=== PATIENT | female | born 1945 | race Caucasian/White ===

== ENCOUNTER 2017-05-14 06:07 | Day surgery (SDC) | END 2017-05-14 10:55 | disposition home or self-care (01) ==

== ENCOUNTER 2018-04-23 05:51 | Day surgery (SDC) | payer OTHER ==
--- NOTE | 2018-04-22 12:20 | PREOPHP ---
DATE OF ADMISSION: 04/23/2018 HISTORY OF PRESENT ILLNESS: This 73-year-old patient is admitted for elective cataract surgery of th e right eye. The patient has had decreased vision over the past year's time involving the right eye. The patient denies prior history of eye disease or injury. PAST MEDICAL HISTORY: The patient has a positive systemic history for insulin-dependent diabetes carrie litus, systemic hypertension, hypothyroidism and having had a gastric bypass in 2018. CURRENT MEDICATIONS: Include: 1. Victoza. 2. Lantus insulin. 3. Losartan. 4. Aspirin (discontinued on 04/16/2018). 5. Levothyroxine. 6. Jardiance. ALLERGIES: THE PATIENT IS ALLERGIC TO: 1. PENICILLIN. 2. LASIX. 3. BUMEX. PHYSICAL EXAMINATION: Visual acuity with correction is finger counting in the right eye and 20/40 in the left eye. Slit lamp examination reveals anterior cortical nuclear sclerotic and posterior subca psular cataract changes, greater in the right eye than the left eye. Applanation tonometry is 20 mmH g in each eye. Examination of the retina in the right eye is obscured by the advanced cataract. The left eye appears within normal limits without evidence of diabetic retinopathy. DIAGNOSIS: Combined form of cataract, right eye. PLAN: Cataract extraction with lens implant, right eye. The risks and alternatives to the surgery h ave been discussed with the patient as well as the hope for improvement of visual acuity leading to a bility to perform activities of daily living. The patient understands this and agrees to proceed wit h surgery. Dictated By: FERNANDO HATCH/YANETH Conf#: [id number] DID#: [id number]
[~2018-04-23] VITALS: Ht 148.6 cm; Wt 117.2 kg
[2018-04-23] VITALS (10 sets, daily range): BP systolic 101–143; BP diastolic 41–62; PULSE 72–89; RESP 15–18; Ht 148.6 cm; Wt 117.2 kg
[~2018-04-23 05:51] MED LIST: ALBU18HF INHALATION; ASPI-817 PO; ATOR20TA38 PO; CARV6.2579 PO; CETI5SOL PO; DILTIAZEM PO; DOCU-159 PO; DULERA; EMPA10TA PO; ETHA25TA2 PO; FER325 PO; HUMULIN SC; HYDR25TA6 PO; LANT3I SC; LEVO200T6 PO; LIRA0.6P SQ; LOSA100T15 PO; POTA20PA23 PO; TIOT18CA IH
[2018-04-23] MEDS ORDERED: TROPICAMIDE 1% 15 ML OPH OPER SCH (06:00)
[2018-04-23] MEDS ORDERED: DICLOFENAC 0.1% 2.5 ML OPH OPER SCH (06:00)
[2018-04-23] MEDS ORDERED: CYCLOPENTOLATE/PHENYLEPH 2 ML OPH OPER SCH (06:00)
[2018-04-23] MEDS ORDERED: SOD CHLORIDE 0.9% 1,000 ML IV SCH (06:00)
[2018-04-23] MEDS ORDERED: MOXIFLOXACIN 0.5% 3 ML OPH OPER SCH (06:00)
[2018-04-23] MEDS ORDERED: TIOT18CA INHALATION (06:48)
--- NOTE | 2018-04-23 06:48 | PREAC ---
Date/Time of Note Date/Time of Note DATE: 04/23/18 TIME: 06:42 Anesthesia Eval and Record Evaluation Time Pre-Procedure Interview DATE: 04/23/18 TIME: 06:42 Age 73 Sex female NPO: 8 hrs Preoperative diagnosis Right Eye cataract Planned procedure Right eye cataract extraction and IOL Past Medical History Past Medical History: Includes Cardio: HTN, Dyslipidemia, CAD, CHF Endo: Diabetes, Hypothyroid Pulm: Smoking Hx, COPD, Sleep Apnea Neuro: Peripheral neuropathy Musculoskeletal: Osteoarthritis Renal: Other Hepatic: Other GI: Morbid obesity Heme: Other Psych: Depression, Anxiety Infection(s): Other Recreational drugs: Other : Other Surgery & Anesthesia Issues Hx of difficult intubation, Aspiration risk Meds Anticoagulation: No Beta Angela within 24 hr: Yes Reason Beta Angela not given: Asthma Reported Medications Liraglutide (Victoza 2-Jamal) 0.6 Mg/0.1 Ml Pen.injctr, 0.6 MG SQ DAILY, SYR 05/14/17 Insulin Glargine* (Lantus*) 100 Unit/Ml Soln, 1 UNIT SC DAILY, #1 VIAL 05/14/17 Potassium Chloride (Potassium Chloride) 20 Meq Packet, 20 MEQ PO BID, PACKET 05/14/17 Carvedilol* (Carvedilol*) 6.25 Mg Tablet, 6.25 MG PO BID, #60 TAB 05/14/17 Empagliflozin (Jardiance) 10 Mg Tablet, 10 MG PO DAILY, TAB 05/14/17 Ferrous Sulfate* (Ferrous Sulfate*) 325 Mg Tabec, 325 MG PO DAILY, TAB 05/14/17 Albuterol Sulfate* (Ventolin HFA*) 18 Gm Hfa.aer.ad, 2 PUFF INHALATION Q6H, #1 INHALER 05/14/17 Docusate Sodium* (Docusate Sodium*) 100 Mg Capsule, 100 MG PO BID, CAP 11/24/14 Aspirin* (Aspirin* EC) 81 Mg Tablet.dr, 81 MG PO DAILY, TAB 11/24/14 Hydrochlorothiazide* (Hydrochlorothiazide*) 25 Mg Tab, 25 MG PO DAILY, TAB 11/24/14 Levothyroxine Sodium* (Levothyroxine Sodium*) 200 Mcg Tablet, 200 MCG PO AC BREAKFAST, TAB 11/24/14 Atorvastatin Calcium* (Atorvastatin Calcium*) 20 Mg Tablet, 20 MG PO HS, TAB 11/24/14 Losartan Potassium* (Losartan Potassium*) 100 Mg Tablet, 100 MG PO DAILY, TAB 11/24/14 Ethacrynic Acid* (Edecrin*) 25 Mg Tablet, 25 MG PO BID, TAB 11/24/14 [Diltiazem] No Conflict Check, 30 MG PO DAILY 11/24/14 Cetirizine Hcl* (Cetirizine Hcl*) 5 Mg/5 Ml Solution, 10 MG PO DAILY, ML 11/24/14 [Dulera] No Conflict Check 11/24/14 [Humulin] No Conflict Check, 30 UNITS SC DAILY 11/24/14 Tiotropium [place]* (Spiriva*) 18 Mcg Cap.w.dev, 1 INH IH DAILY, EA 11/24/14 Current Medications Diclofenac Sodium (Voltaren 0.1%) 1 drop Q5 MIN X 3 OPER ; Start 04/23/18 at 06:00 Tropicamide (Mydriacyl 1%) 1 drop Q5 MIN X3 OPER ; Start 04/23/18 at 06:00 Moxifloxacin HCl (Vigamox) 1 drop Q5 MIN X 3 OPER ; Start 04/23/18 at 06:00 Cyclopentolate/ Phenylephrine (Cyclomydril Oph 2 ml) 1 drop Q5 MIN X 3 OPER ; Start 04/23/18 at 06:00 Sodium Chloride 1,000 ml @ 25 mls/hr Q24H IV ; Start 04/23/18 at 06:00 Meds reviewed: Yes Allergies Coded Allergies: Penicillins (Verified Allergy, Severe, RASH, THROAT TIGHTNESS, 11/24/14) bumetanide (Verified Allergy, Unknown, BLISTER, 11/24/14) furosemide (Verified Allergy, Unknown, BLISTER, 11/24/14) Allergies Reviewed: Yes Labs/Studies Labs Reviewed: Reviewed by anesthesiologist test: N/A Studies: ECG, CXR Pre-procedure Exam Airway: Adequate mouth opening Mallampati: Mallampati III Teeth: Normal Lung: Abnormal Heart: Abnormal Anticipated Difficutly with IV: Anticipate Difficult IV Access ASA Physical Status ASA physical status: 3 Emergency: None Planned Anesthetic General/MAC: MAC Neuraxial: Other Nerve block: Other Planned Pain Management Parenteral pain med, Local by surgeon Pre-operative Attestations Prior to commencing anesthesia and surgery, the patient was re-evaluated, there was verification of: *The patient's identity *The results of appropriate recent lab work and preoperative vital signs *The above evaluation not changing prior to induction *Anesthetic plan, risk benefits, alternative and complications discussed with patient/family; questions answered; patient/family understands, accepts and wishes to proceed. KHADIJAH CRUZ MD Apr 23, 2018 06:48
[2018-04-23] MEDS ORDERED: MOME13HF INHALATION (06:49)
[2018-04-23] MEDS ORDERED: ALBU18HF INHALATION (06:49)
[2018-04-23] MEDS ORDERED: INSU100I12 SQ ×2 (06:50→06:52)
[2018-04-23] MEDS ORDERED: LIRA0.6P2 SQ (06:52)
[2018-04-23] MEDS ORDERED: INSU100I33 SC (06:53)
[2018-04-23] MEDS ORDERED: CARV6.25 PO (06:53)
[2018-04-23] MEDS ORDERED: ASPI81TA52 PO (06:54)
[2018-04-23] MEDS ORDERED: LOSA100T15 PO (06:54)
[2018-04-23] MEDS ORDERED: ATOR40TA68 PO (06:55)
[2018-04-23] MEDS ORDERED: URSO300C3 PO (06:55)
[2018-04-23] MEDS ORDERED: CETI10TA19 PO (06:56)
[2018-04-23] MEDS ORDERED: LIDOCAINE 4% (MPF) 5 ML INJ ONE (06:57)
[2018-04-23] MEDS ORDERED: PROPOFOL 20 ML ONE (06:57)
[2018-04-23] MEDS ORDERED: CEFAZOLIN 1 GM INJ ONE (06:57)
[2018-04-23] MEDS ORDERED: CARBACHOL 0.01% 1.5 ML OPH INJ ONE ×2 (06:58→07:21)
[2018-04-23] MEDS ORDERED: NA HYALURONATE/CHONDROITIN 0.5 ML SYG ONE (06:58)
[2018-04-23] MEDS ORDERED: GENTAMICIN 80 MG INJ ONE (06:58)
[2018-04-23] MEDS ORDERED: DEXAMETHASONE 4 MG/ML 1 ML INJ ONE (06:58)
[2018-04-23] MEDS ORDERED: TETRACAINE 0.5% 4 ML OPH ONE (06:58)
[2018-04-23] MEDS ORDERED: EPINEPHrine 1 MG INJ ONE (06:58)
[2018-04-23] MEDS ORDERED: LIDOCAINE 2% (SDV) 5 ML INJ ONE (07:00)
[2018-04-23] MEDS ORDERED: MOXIFLOXACIN 0.5% 3 ML OPH ONE (07:25)
[2018-04-23] MEDS ORDERED: LIDOCAINE 1% (MPF) 10 ML INJ ONE ×2 (07:52→07:53)
[2018-04-23] MEDS ORDERED: FENTAnyl 50 MCG/ML VIAL ONE (08:08)
[2018-04-23] MEDS ORDERED: MIDAZOLAM 1 MG/ML 2 ML INJ ONE (08:09)
--- NOTE | 2018-04-23 08:33 | SIPON ---
Date/Time of Note Date/Time of Note DATE: 04/23/18 TIME: 08:32 Operative Report Preoperative Diagnosis mature cataract od Postoperative Diagnosis same Operation/Procedure Performed cataract extraction with lens implant od Surgeon fernando casillas lens assistant none Anesthesia: MAC Estimated blood loss: none Transfusion Required none Specimen none Grafts/Implants posterior chamber lens implant Complications none FERNANDO CASILLAS MD Apr 23, 2018 08:33
--- NOTE | 2018-04-23 08:36 | PAC ---
Date/Time of Note Date/Time of Note DATE: 04/23/18 TIME: 08:35 Post-Anesthesia Notes Post-Anesthesia Note Activity: WNL Respiratory function: WNL Cardiovascular function: WNL Mental status: Baseline Pain reasonably controlled: Yes Hydration appropriate: Yes Nausea/Vomiting absent: No KHADIJAH CRUZ MD Apr 23, 2018 08:36
--- NOTE | 2018-04-23 09:15 | OPR ---
DATE OF OPERATION: 04/23/2018 PREOPERATIVE DIAGNOSIS: Mature cataract, right eye. POSTOPERATIVE DIAGNOSIS: Mature cataract, right eye. OPERATION PERFORMED: Cataract extraction with lens implant, right eye. ANESTHESIOLOGIST: Dr. Shanks. ANESTHESIA: Local standby. PROCEDURE: The patient was brought to the operating room and placed on the table with an IV in place and the patient attached to an cafeteria monitor. Oxygen was given via face mask. After some intravenous sedation was administered, local anesthesia was given using Xylocaine 2% with epinephrine, mixed with Marcaine 0.5%. This was given in a lid block and retrobulbar injection. The patient was then prepped and draped in the usual sterile manner. A wire lid speculum was inserted between the lids of the right eye. A Superblade was used to enter the anterior chamber at the corneoscleral limbus at the 10:30 o'clock position. A separate incision was made using a 3.0-mm keratome which entered the corneoscleral junction at the 12 o'clock position. Through this 3-mm opening, an irrigating cystotome was introduced into the anterior chamber. The chamber was filled with Viscoat and an anterior capsulotomy was performed. Balanced salt solution was then used for hydrodissection of the lens. A phacoemulsification handpiece was then brought into the field and introduced into the anterior chamber. The lens nucleus was emulsified using a deep groove and cracking the nucleus into quadrants. Following this, each quadrant was aspirated and emulsified at the pupillary margin. Due to the matured nature of the cataract excessive phacoemulsification ultrasound time was required a total of 4 minutes of ultrasonic power was used during the procedure. After this was completed, the irrigation/aspiration handpiece was brought to the field, introduced into the posterior chamber, and the lens cortical material was removed. When this was completed, additional Viscoat was injected into the anterior and posterior chambers. The 3-mm opening had its internal lips enlarged, and then the posterior chamber intraocular lens measuring 21.5 diopters ([employer] model LI61AO) was then injected into the posterior chamber using the lens injector system. After the leading haptic was introduced into the capsular bag and the lens optic was present in the center of the eye, the injector was removed and the trailing haptic was grasped with non-toothed forceps and introduced into the capsular fold superiorly. A [place] hook was then used to rotate the intraocular lens so that the lips were oriented in the horizontal meridian. One 10-0 nylon suture was placed across the wound. Prior to tying, the irrigation/aspiration handpiece was reintroduced into the anterior chamber to remove the Viscoat. Miochol was instilled to constrict the pupil, and then the 10-0 nylon suture was tied. The ends were cut short and then the knot was buried. Then, 0.5 mL of dexamethasone and 0.5 mL of gentamycin were injected into the sub-Tenon space in the inferior fornix. Ciloxan drops were then placed on the surface of the eye. The speculum was removed and a patch was applied. The patient then left the operating room in satisfactory condition. Dictated By: FERNANDO HATCH/NTS Conf#: [id number] DID#: [id number] CC: FERNANDO CASILLAS MD;*EndCC* MTDD
== END 2018-04-23 09:37 | disposition home or self-care (01) ==
LOC: SDS 05:51
PROVIDERS: ATTEND Ophthalmology
DX: H25.11 Age-related nuclear cataract, right eye (principal); E11.9 Type 2 diabetes mellitus without complications; I11.0 Hypertensive heart disease with heart failure; I50.9 Heart failure, unspecified; I25.10 Atherosclerotic heart disease of native coronary artery without angina pectoris; E03.9 Hypothyroidism, unspecified; E78.5 Hyperlipidemia, unspecified; Z87.891 Personal history of nicotine dependence; J44.9 Chronic obstructive pulmonary disease, unspecified
CPT/HCPCS: 66984; 82962; J0171; J0690; J1100; J1580; J2250; J3010; Z7610; V2632

== ENCOUNTER 2018-06-25 06:38 | Day surgery (SDC) | payer OTHER ==
--- NOTE | 2018-06-24 13:10 | PREOPHP ---
DATE OF ADMISSION: 06/25/2018 HISTORY OF PRESENT ILLNESS: This 73-year-old patient is admitted for elective cataract surgery of th e left eye. The patient has had progressive deterioration of vision in both eyes over the past few y ears with extensive loss of vision in the right eye due to a mature cataract. Two months ago, the robbin joyner underwent cataract surgery in the right eye with excellent visual recovery. SYSTEMIC HISTORY: Positive for insulin-dependent diabetes mellitus, systemic hypertension, hypothyro idism and having gastric bypass in 2018. CURRENT MEDICATIONS: Include: 1. Victoza. 2. Lantus insulin. 3. Losartan. 4. Aspirin (discontinued on 06/07/2018). 5. Levothyroxine. 6. Jardiance. ALLERGIES: THE PATIENT IS ALLERGIC TO: 1. PENICILLIN. 2. LASIX. 3. BUMEX. PHYSICAL EXAMINATION: The visual acuity with best correction is 20/25 in the right eye and 20/50 in the left eye. Slit lamp examination reveals a posterior chamber intraocular lens in appropriate posi tion in the right eye and an anterior cortical, moderate nuclear sclerotic and central posterior subc apsular cataract in the left eye. Applanation tonometry is 17 mmHg. Examination of the retina is gr ossly normal. DIAGNOSIS: Combined form of cataract, left eye. PLAN: Cataract extraction with lens implant. The risks and alternatives to the surgery have been di scussed with the patient as well as the hope for improvement in visual acuity leading to greater abil ity to perform activities of daily living. The patient understands this and agrees to proceed with s taurus. Dictated By: FERNANDO HATCH/YANETH Conf#: [id number] DID#: [id number]
[~2018-06-25] VITALS: Ht 147.3 cm; Wt 117.9 kg
[2018-06-25] VITALS (10 sets, daily range): BP systolic 65–142; BP diastolic 42–65; PULSE 86–96; RESP 14–28; Ht 147.3 cm; Wt 117.9 kg
[~2018-06-25 06:38] MED LIST changes: -ASPI-817 PO; +ASPI81TA52 PO; -ATOR20TA38 PO; +ATOR40TA68 PO; +CARV6.25 PO; -CARV6.2579 PO; +CETI10TA19 PO; -CETI5SOL PO; -DILTIAZEM PO; -DOCU-159 PO; -DULERA; -EMPA10TA PO; -ETHA25TA2 PO; -FER325 PO; -HUMULIN SC; -HYDR25TA6 PO; +INSU100I12 SQ; +INSU100I33 SC; -LANT3I SC; -LEVO200T6 PO; -LIRA0.6P SQ; +LIRA0.6P2 SQ; +MOME13HF INHALATION; -POTA20PA23 PO; +SOD CHLORIDE 0.9% 1,000 ML IV SCH; -TIOT18CA IH; +TIOT18CA INHALATION; +URSO300C3 PO
[2018-06-25] MEDS: MOXIFLOXACIN 0.5% 3 ML OPH OPER SCH ×3 (07:16→07:26)
[2018-06-25] MEDS: CYCLOPENTOLATE/PHENYLEPH 2 ML OPH OPER SCH ×3 (07:16→07:26)
[2018-06-25] MEDS: TROPICAMIDE 1% 15 ML OPH OPER SCH ×3 (07:16→07:26)
[2018-06-25] MEDS: DICLOFENAC 0.1% 2.5 ML OPH OPER SCH ×3 (07:18→07:26)
[2018-06-25] MEDS ORDERED: LEVO175T38 PO (07:56)
[2018-06-25] MEDS ORDERED: ETHA25TA2 PO (07:57)
[2018-06-25] MEDS ORDERED: LANS30CA PO (08:00)
--- NOTE | 2018-06-25 08:48 | PREAC ---
Date/Time of Note Date/Time of Note DATE: 06/25/18 TIME: 08:38 Anesthesia Eval and Record Evaluation Time Pre-Procedure Interview DATE: 06/25/18 TIME: 08:38 Age 73 Sex female NPO: 8 hrs Preoperative diagnosis left cataract Planned procedure left CE with OIL implant Past Medical History Past Medical History: Includes Cardio: HTN, CAD, CHF, Other (hx PE with IVC filter placed 2009; EF 54%) Endo: Diabetes, Hypothyroid Pulm: Smoking Hx (former smoker 30 years quit 2001), COPD, Sleep Apnea, Home CPAP, Asthma Neuro: Peripheral neuropathy GI: Obesity, Morbid obesity Surgery & Anesthesia Issues No known issue (hx sleeve gastrectomy) Meds Anticoagulation: Yes Beta Angela within 24 hr: Yes Reported Medications Lansoprazole* (Lansoprazole*) 30 Mg Capsule.dr, 30 MG PO DAILY, CAP 06/25/18 Ethacrynic Acid* (Edecrin*) 25 Mg Tablet, 200 MG PO DAILY, TAB 06/25/18 Levothyroxine Sodium* (Levoxyl*) 175 Mcg Tablet, 175 MCG PO BEFORE BREAKFAST, #30 TAB 06/25/18 Cetirizine Hcl* (Cetirizine Hcl*) 10 Mg Tablet, 10 MG PO DAILY, #30 TAB 04/23/18 Ursodiol* (Ursodiol*) 300 Mg Capsule, 300 MG PO BID, CAP 04/23/18 Atorvastatin* (Atorvastatin*) 40 Mg Tablet, 40 MG PO QHS, #30 TAB 04/23/18 Losartan Potassium* (Losartan Potassium*) 100 Mg Tablet, 100 MG PO DAILY, TAB 04/23/18 Aspirin (Low Dose Aspirin) 81 Mg Tablet.dr, 81 MG PO DAILY, #30 TAB 04/23/18 Carvedilol* (Coreg*) 6.25 Mg Tablet, 6.25 MG PO BID, #60 TAB 04/23/18 Insulin Glargine,Hum.rec.anlog (Basaglar Kwikpen U-100) 100 Unit/1 Ml Insuln.pen, 22 UNIT SC BID, EA 04/23/18 Liraglutide (Victoza 3-Jamal) 0.6 Mg/0.1 Ml Pen.injctr, 1.8 MG SQ QHS, SYR 04/23/18 Insulin Lispro (Humalog Kwikpen U-100) 100 Unit/1 Ml Insuln.pen, 10 UNIT SQ AC LUNCH DINNER, EA 04/23/18 Insulin Lispro (Humalog Kwikpen U-100) 100 Unit/1 Ml Insuln.pen, 15 UNIT SQ QAM, EA 04/23/18 Mometasone-Formoterol (Dulera) 200-5 Mcg/Inh - 13 Gm Hfa.aer.ad, 2 PUFFS INHALATION BID, #1 INHALER 04/23/18 Albuterol Sulfate* (Ventolin HFA*) 18 Gm Hfa.aer.ad, 2 PUFF INHALATION Q4H, #1 INHALER 04/23/18 Tiotropium [place]* (Spiriva*) 18 Mcg Cap.w.dev, 1 CAP INHALATION DAILY, #30 CAP 04/23/18 Current Medications Diclofenac Sodium (Voltaren 0.1%) 1 drop Q5 MIN X 3 OPER Last administered on 06/25/18at 07:26; Admin Dose 1 DROP; Start 06/25/18 at 06:00 Tropicamide (Mydriacyl 1%) 1 drop Q5 MIN X3 OPER Last administered on 06/25/18at 07:26; Admin Dose 1 DROP; Start 06/25/18 at 06:00 Moxifloxacin HCl (Vigamox) 1 drop Q5 MIN X 3 OPER Last administered on 06/25/18at 07:26; Admin Dose 1 DROP; Start 06/25/18 at 06:00 Cyclopentolate/ Phenylephrine (Cyclomydril Oph 2 ml) 1 drop Q5 MIN X 3 OPER Last administered on 06/25/18at 07:26; Admin Dose 1 DROP; Start 06/25/18 at 06:00 Sodium Chloride 1,000 ml @ 25 mls/hr Q24H IV Last administered on 06/25/18at 07:15; Admin Dose 25 MLS/HR; Start 06/25/18 at 06:00 Sod Cl/Ca Cl/Mg Cl/Pot Cl/ Gentamicin Sulfate/ Epinephrine INTRA-OP IRR ; Start 06/25/18 at 09:00 Meds reviewed: Yes Allergies Coded Allergies: Penicillins (Verified Allergy, Severe, RASH, THROAT TIGHTNESS, 06/25/18) bumetanide (Verified Allergy, Unknown, BLISTER, 06/25/18) furosemide (Verified Allergy, Unknown, BLISTER, 06/25/18) Allergies Reviewed: Yes Labs/Studies Labs Reviewed: Reviewed by anesthesiologist test: N/A Studies: ECG, CXR, Stress test Pre-procedure Exam Last vitals Vital Signs Date Temp Pulse Resp B/P (MAP) Pulse Ox O2 O2 Flow FiO2 Time Delivery Rate 06/25/18 95.9 89 18 142/65 91 Room Air 07:50 (90) Airway: Adequate mouth opening, Adequate thyromental dist Mallampati: Mallampati III Teeth: Normal Lung: Abnormal (diminished with chronic dry cough) Heart: Normal ASA Physical Status ASA physical status: 3 Emergency: None Planned Anesthetic General/MAC: MAC Planned Pain Management Parenteral pain med Pre-operative Attestations Prior to commencing anesthesia and surgery, the patient was re-evaluated, there was verification of: *The patient's identity *The results of appropriate recent lab work and preoperative vital signs *The above evaluation not changing prior to induction *Anesthetic plan, risk benefits, alternative and complications discussed with patient/family; questions answered; patient/family understands, accepts and wishes to proceed. COLIN HULL DEPARTMENT ASSISTANT Jun 25, 2018 08:48
[2018-06-25] MEDS ORDERED: MIDAZOLAM 1 MG/ML 2 ML INJ ONE (08:50)
[2018-06-25] MEDS ORDERED: LIDOCAINE 2% (SDV) 5 ML INJ ONE (08:50)
[2018-06-25] MEDS ORDERED: PROPOFOL 20 ML ONE (08:50)
[2018-06-25] MEDS ORDERED: BALANCED SALT SOLN OPH IRRIG 500 ML, GENTAMICIN 4 MG, EPINEPHrine 0.1 MG IRR SCH ×3 (09:00)
[2018-06-25] MEDS ORDERED: LIDOCAINE 4% (MPF) 5 ML INJ INJ ONE (09:12)
[2018-06-25] MEDS ORDERED: CARBACHOL 0.01% 1.5 ML OPH INJ LEFT EYE ONE (09:12)
[2018-06-25] MEDS ORDERED: TETRACAINE 0.5% 4 ML OPH LEFT EYE ONE (09:13)
[2018-06-25] MEDS ORDERED: NA HYALURONATE/CHONDROITIN 0.5 ML SYG LEFT EYE ONE (09:14)
--- NOTE | 2018-06-25 09:34 | SIPON ---
Date/Time of Note Date/Time of Note DATE: 06/25/18 TIME: 09:33 Operative Report Preoperative Diagnosis cortical and nuclear sclerotic cataract os Postoperative Diagnosis same Operation/Procedure Performed cataract extracxtion with lens implant os Surgeon fernando casillas television production assistant none Anesthesia: MAC Estimated blood loss: none Transfusion Required none Specimen none Grafts/Implants posterior chamber lens implant Complications none FERNANDO CASILLAS MD Jun 25, 2018 09:34
--- NOTE | 2018-06-25 09:41 | PAC ---
Date/Time of Note Date/Time of Note DATE: 06/25/18 TIME: 09:41 Post-Anesthesia Notes Post-Anesthesia Note Last documented vital signs Vital Signs Date Temp Pulse Resp B/P (MAP) Pulse Ox O2 O2 Flow FiO2 Time Delivery Rate 06/25/18 95.9 89 18 142/65 91 Room Air 07:50 (90) Activity: WNL Respiratory function: WNL Cardiovascular function: WNL Mental status: Baseline Pain reasonably controlled: Yes Hydration appropriate: Yes Nausea/Vomiting absent: Yes Comments BP 103/46 Spo2 91% Room air baseline HR 90 RR 12 Temp 98F COLIN HULL CRNA Jun 25, 2018 09:41
[2018-06-25] MEDS ORDERED: OXYCODONE/ACETAMINOPHEN (5/325) TAB PO PRN (10:00)
[2018-06-25] MEDS ORDERED: FENTAnyl 50 MCG/ML VIAL IV PRN (10:00)
--- NOTE | 2018-06-25 10:58 | OPR ---
DATE OF OPERATION: 06/25/2018 PREOPERATIVE DIAGNOSIS: Nuclear sclerotic and anterior cortical cataract, left eye. POSTOPERATIVE DIAGNOSIS: Nuclear sclerotic and anterior cortical cataract, left eye. OPERATION PERFORMED: Cataract extraction with lens implant, left eye. ANESTHESIA: Local standby. ANESTHESIOLOGIST: Adilene Curtis CRNA. PROCEDURE: The patient was brought to the operating room and placed on the table with an IV in place and the patient attached to an surveillance monitor. Oxygen was given via face mask. After some intravenous sedation was administered, local anesthesia was given using Xylocaine 2% with epinephrine, mixed with Marcaine 0.5%. This was given in a lid block and retrobulbar injection. The patient was then prepped and draped in the usual sterile manner. A wire lid speculum was inserted between the lids of the left eye. A Superblade was used to enter th e anterior chamber at the corneoscleral limbus at the 10:30 o'clock position. A separate incision wa s made using a 3.0-mm keratome which entered the corneoscleral junction at the 12 o'clock position. Through this 3-mm opening, an irrigating cystotome was introduced into the anterior chamber. The ari mber was filled with Viscoat and an anterior capsulotomy was performed. Balanced salt solution was t hen used for hydrodissection of the lens. A phacoemulsification handpiece was then brought into the field and introduced into the anterior chamber. The lens nucleus was emulsified using a deep groove and cracking the nucleus into quadrants. Following this, each quadrant was aspirated and emulsified at the pupillary margin. After this was completed, the irrigation/aspiration handpiece was brought to the field, introduced in to the posterior chamber, and the lens cortical material was removed. When this was completed, addit ional Viscoat was injected into the anterior and posterior chambers. The 3-mm opening had its internal lips enlarged, and then the posterior chamber intraocular lens antonina uring 20.5 diopters ([employer] model LI61AO) was then injected into the posterior c hamber using the lens injector system. After the leading haptic was introduced into the capsular bag and the lens optic was present in the center of the eye, the injector was removed and the trailing h aptic was grasped with non-toothed forceps and introduced into the capsular fold superiorly. A [place] ey hook was then used to rotate the intraocular lens so that the lips were oriented in the horizontal meridian. One 10-0 nylon suture was placed across the wound. Prior to tying, the irrigation/aspiration handpiece was reintroduced into the anterior chamber to rem ove the Viscoat. Miochol was instilled to constrict the pupil, and then the 10-0 nylon suture was ti ed. The ends were cut short and then the knot was buried. Then, 0.5 mL of dexamethasone and 0.5 mL of gentamicin were injected into the sub-Tenon space in the inferior fornix. Ciloxan drops were then placed on the surface of the eye. The speculum was removed and a patch was applied. The patient then left the operating room in satisfactory condition. Dictated By: FERNANDO HATCH/YANETH Conf#: [id number] DID#: [id number] CC: FERNANDO CASILLAS MD;*EndCC*
== END 2018-06-25 11:10 | disposition home or self-care (01) ==
LOC: SDS 06:38
PROVIDERS: ATTEND Ophthalmology
DX: H25.12 Age-related nuclear cataract, left eye (principal); E11.9 Type 2 diabetes mellitus without complications; E03.9 Hypothyroidism, unspecified; I11.0 Hypertensive heart disease with heart failure; I50.9 Heart failure, unspecified; I25.10 Atherosclerotic heart disease of native coronary artery without angina pectoris; Z79.82 Long term (current) use of aspirin; Z79.4 Long term (current) use of insulin
CPT/HCPCS: 66984; 82962; J2250; V2632; Z7512; Z7610